=== PATIENT | female | born 1980 | race African-American/Black ===

== ENCOUNTER 2018-03-13 12:00 | Inpatient (IN) | payer OTHER ==
[2018-03-18 15:01] VITALS: BMI 22.3
[2018-03-19] MEDS ORDERED: Gabapentin 300 MG CAP ONE (08:49)
[2018-03-19] MEDS ORDERED: CEFAZOLIN 2 GM/50 ML BAG ONE (08:49)
[2018-03-19] MEDS ORDERED: Famotidine/PF 20 mg/2ml Vial ONE (08:49)
[2018-03-19] MEDS ORDERED: CeleCOXIB 100 MG CAP ONE (08:49)
[2018-03-19] MEDS ORDERED: Midazolam HCl 2 mg/2 ml Vial ONE (09:36)
--- NOTE | 2018-03-19 09:39 | HP ---
HISTORY OF PRESENT ILLNESS: Beverly Rutherford is a 48-year-old female, who had a left arm fistula placed on 01/14/2018. Ultrasound vein mapping suggested cephalic vein to be acceptable and findings of operation were that of cephalic vein is seemed to accept the dilator well and she reports she had a good bruit in the fistula upon discharge home, but sometime after as an outpatient, this signal was lost. She now desires peritoneal dialysis catheter placement. Ultrasound vein mapping of the right arm reveals the cephalic vein to be 2 mm, 1 mm, 1 mm, 1 mm antecubital fossa and proximal forearm 2 mm, basilic vein 5, 4, 4 , and 2 mm antecubital fossa. Plan is to explore her right arm for primary fistula and place the laparoscopic peritoneal dialysis catheter. We will not plan to place the prosthetic graft. She understands the risks and benefits of procedure and consents. She now dialyzes Sunday, Sunday, Sunday at [facility] at 3:00 p.m. ALLERGIES: NONE. SOCIAL HISTORY: Tobacco, none. Alcohol, none. PAST SURGICAL HISTORY: Tubal ligation on 01/14/2018, left arm primary fistula at the proximal radial artery and outflow slowly, cephalic vein upper arm now thrombosed. PAST MEDICAL HISTORY: Diabetes mellitus, hypertension, and end-stage renal disease, on maintenance dialysis. REVIEW OF SYSTEMS: Noncontributory. IMAGING STUDIES: Echocardiogram normal. MEDICATIONS: 1. Levetiracetam 250 mg once a day. 2. Plavix 75 mg a day. 3. Aspirin 81 mg a day. 4. Atorvastatin 80 mg a day. 5. Levemir insulin 9 units a.m. and 9 units at bedtime. 6. Amlodipine 5 mg a day. 7. Carvedilol 25 mg twice a day. PHYSICAL EXAMINATION: VITAL SIGNS: Weight 116 pounds, height 5 feet 1 inch, blood pressure 140/69, pulse 74, temperature 99.3 degrees. HEAD, EARS, EYES, NOSE, AND THROAT: Unremarkable. LUNGS: Clear to auscultation. CARDIAC: Regular rhythm without murmur or gallop. ABDOMEN: Soft, nontender. No hernias noted. Flat abdomen. EXTREMITIES: Unremarkable. Left arm fistula thrombosed. ASSESSMENT AND PLAN: 1. End-stage renal disease, on maintenance dialysis at 3:00 p.m. at [facility] on Sunday, Sunday, and Sunday. The plan is laparoscopic peritoneal dialysis catheter and exploration of right arm for a possible fistula. Prosthetic graft will not be placed. Risks of infection, bleeding, re-operation, malfunction of the peritoneal dialysis catheter were explained. 2. Diabetes mellitus, insulin dependent. 3. Hypertension. Job ID: [id number]
--- NOTE | 2018-03-19 10:55 | HP ---
She is scheduled for surgery on 03/19/2018. HISTORY OF PRESENT ILLNESS: Ms. Lamar is a 37-year-old female, G5, P5, with 4 vaginal deliveries and 1 section and also tubal ligation, who has been having increasingly heavy menorrhagia issues. She is noted to be anemic consistent with iron deficiency anemia with a hemoglobin in the 9 to 10 range. She has been receiving IV iron therapy with Dr. Jennifer Moses preoperatively. She describes soaking a maxi pad and tampon in less than an hour for 5 days with her menstrual cycles and has been taking oral iron. Her menstrual cycles essentially caused her to be very fatigued and wipe her out and make her unable to perform her activities of daily living. She also has severe menstrual cramping. Due to this, she underwent an evaluation in my office on February 06. She had a pelvic ultrasound due to the menorrhagia history. This showed her uterus to measure fibroid that was both intramural and also submucosal. Both left and right ovaries were normal in appearance. PAST MEDICAL HISTORY: Negative other than the iron deficiency anemia. PAST SURGICAL HISTORY: section and tubal ligation. She had a section approximately 2 years ago for twin gestation. Otherwise, 4 normal vaginal deliveries. Her last Pap smear was normal with negative HPV in the past 3 years. FAMILY HISTORY: Only significant for hyperlipidemia and heart disease in her grandparents along with diabetes. SOCIAL HISTORY: Nonsmoker and nondrinker. CURRENT MEDICATIONS: Iron. ALLERGIES: SHE HAS NO KNOWN DRUG ALLERGIES. PHYSICAL EXAMINATION: VITAL SIGNS: Height 5 feet and 5 inches, weight 137 pounds, BMI of 22.8. Blood pressure 110/70, pulse 80, and respirations 18. HEENT: Within normal limits. CHEST: Clear to auscultation. HEART: Regular rate and rhythm. S1 and S2 heart sounds. No murmurs, rubs, or gallops. ABDOMEN: Soft, nontender, and nondistended with no palpable masses. Well-healed Pfannenstiel abdominal incision scar. PELVIC: Vulva and vagina had no lesions. Cervix had no lesions. Uterus is enlarged, 10-week size consistent with uterine fibroids. Adnexa, nontender with no masses. ASSESSMENT: This is a 37-year-old female, G5, P5, with prior and tubal ligation with menorrhagia secondary to uterine fibroid. Desiring definitive surgical therapy. PLAN: Plan is to proceed with total laparoscopic hysterectomy and bilateral salpingectomy. Risks and benefits of procedure had been discussed in detail. She is set for surgery on 03/19. Job ID: [id number]
[2018-03-19] MEDS ORDERED: Fentanyl 250 MCG/5 ML VIAL ONE (11:07)
[2018-03-19] MEDS ORDERED: Glycopyrrolate 0.2 MG/ML 5 ML SYRINGE ONE (12:49)
[2018-03-19] MEDS ORDERED: PROPOFOL 200 MG/20 ML VIAL ONE (12:49)
[2018-03-19] MEDS ORDERED: Dexamethasone 20 MG/5 ML VIAL ONE (12:49)
[2018-03-19] MEDS ORDERED: Ondansetron PF 4 MG/2 ML Vial ONE (12:49)
[2018-03-19] MEDS ORDERED: Lidocaine 1% PF 5 ML VIAL ONE (12:49)
[2018-03-19] MEDS ORDERED: traMADol HCl 50 MG TAB PO PRN ×2 (13:30)
[2018-03-19] MEDS ORDERED: Morphine 2 MG/ML SYRINGE SLOW IVP PRN (13:30)
[2018-03-19] MEDS ORDERED: Zolpidem Tartrate 5 MG TAB PO PRN (13:30)
[2018-03-19] MEDS ORDERED: Ondansetron PF 4 MG/2 ML Vial IVP PRN (13:30)
[2018-03-19] MEDS ORDERED: diphenhydrAMINE 25 MG CAP PO PRN (13:30)
[2018-03-19] MEDS ORDERED: Bisacodyl 10 MG SUPP PR PRN (13:30)
[2018-03-19] MEDS ORDERED: Promethazine HCl 25 MG/ML VIAL IM PRN ×2 (13:30→13:42)
[2018-03-19] MEDS ORDERED: Simethicone Chewable 80 MG TAB PO PRN (13:30)
[2018-03-19] MEDS ORDERED: Ondansetron HCl/PF 4 MG/2 ML Vial IVP PRN (13:42)
[2018-03-19] MEDS ORDERED: Promethazine HCl 25 MG/ML VIAL SLOW IVP PRN (13:42)
[2018-03-19] MEDS ORDERED: Ketorolac Tromethamine 30 MG/ML VIAL IVP PRN (13:42)
[2018-03-19] MEDS ORDERED: Ketorolac Tromethamine 30 MG/ML VIAL ONE (13:43)
[2018-03-19] MEDS ORDERED: Fentanyl 100 MCG/2 ML VIAL ONE ×3 (13:43→14:50)
[2018-03-19] MEDS ORDERED: Bupivacaine HCl 0.5%/Epinephrine 1:200,000/PF 30 ml Vial ONE (13:50)
[2018-03-19] MEDS ORDERED: Promethazine HCl 25 MG/ML VIAL ONE (14:52)
[2018-03-19] MEDS: Ketorolac Tromethamine 30 MG/ML VIAL IVP SCH ×2 (19:08→23:52)
[2018-03-19] MEDS: Lactated Ringer's 1,000 ML IV SCH ×2 (19:09→23:04)
[2018-03-19] MEDS: Acetaminophen 1,000 MG in Premix Bag 1 BAG IVPB SCH ×2 (20:20→23:51)
--- NOTE | 2018-03-20 00:22 | OP ---
DATE OF PROCEDURE: 03/19/2018 PREOPERATIVE DIAGNOSES: 1. 37-year-old female with symptomatic 10 to 12 week uterine fibroids. 2. Menorrhagia. 3. Chronic iron-deficiency anemia secondary to menorrhagia. 4. Prior section and tubal ligation. PROCEDURES PERFORMED: Robotic total laparoscopic hysterectomy with bilateral salpingectomy of remnant tubes. SANIPRACTIC PHYSICIAN SURGEON: Joe Bean DO ANESTHESIA: General endotracheal. ESTIMATED BLOOD LOSS: 50 mL. COMPLICATIONS: None. COUNTS: Correct x2. FINDINGS: 1. Normal-appearing bilateral ovaries and status post tubal segments. 2. Bulky enlarged uterus, approximately 10 to 12 week size. 3. Clear urine present in Ken catheter postprocedure and also intermittent checks during the surgery of distention of the bladder, which was noted to be watertight to fluid distention. 4. Bilateral ureteral peristalsis was seen postprocedure. DISPOSITION: Recovery room, stable. DESCRIPTION OF PROCEDURE: The patient previously received informed consent in regard to surgery. She was taken back to the operating room, where she received the general endotracheal anesthetic agent without complications. She was placed in the dorsal lithotomy position with the use of Luke stirrups and prepped and draped in usual sterile fashion. At this time, a Ken catheter was placed. A sidearm speculum was placed in the vagina. The anterior lip of the cervix was grasped with a single-tooth tenaculum. The uterus was sounded to 11 cm. A size 10 cm THA uterine manipulator was placed with a 4.0 cm cervical cut. Attention was then turned to the abdomen, where respective trocar sites were infiltrated with 0.5% Marcaine with epinephrine. A 12-mm supraumbilical incision was made. Veress needle was entered into the peritoneal cavity. The patient's pressure was noted to be less than 5 mm. The abdomen was insufflated to patient's pressure of 15 with approximately 4.5 L of carbon dioxide gas. Veress needle was then removed. A size 12 mm trocar was then placed and then the laparoscope was introduced through the trocar sleeve confirming proper entry. Additional bilateral lower quadrant 8 mm trocars were placed under laparoscopic guidance along with the right upper quadrant 11 mm pizza hut assistant port. The patient was placed in Trendelenburg position and the robot was then docked. I then scrubbed and proceeded to carry out the surgery from the operative console while my assistants remained at the bedside. The uterus was elevated with the previously mentioned findings. The right fallopian tube remnant was grasped by my pizza hut assistant and cauterized under the mesosalpinx of the right fallopian tube fimbria. This was excised and brought out through the right upper quadrant pizza hut assistant port. The right utero-ovarian ligament was then coagulated and transected and then serial coagulation and transection of the broad ligament hugging close to uterine specimen was carried down until the right round ligament was reached. It was coagulated and transected. The anterior leaf of the broad ligament was entered and the vesicouterine peritoneum was again dissected in layering technique. There was a dense adhesion in the midportion of the lower uterine segment more to the left side that was anchored to the anterior abdominal wall and this was taken down with the monopolar scissors as we confirmed that this was not involving the reflection of the bladder. This allowed for better manipulation of the uterus. The bladder was insufflated and again the exact position of the bladder was confirmed as we began to dissect the vesicouterine peritoneum off the lower uterine segment. The right uterine vessels were skeletonized and coagulated in the internal cervical os region. We came across past the midpoint of the vesicouterine peritoneal flap and there was more denser adhesions on the left side in this region, which then we decided to come at the direction from the left side. First, the left fallopian tube fimbria was excised and removed. Then, the left utero-ovarian ligament was coagulated and transected. Serial coagulation and transection of the uterine broad ligament until left round ligament was reached and it was coagulated and transected. Then, this allowed for us to do a layering technique and dissecting through the dense adhesion in this area with intermittent distention of the bladder to ascertain the exact position avoiding injury to it during this dissection process. In a layering technique with monopolar scissors and control of bleeding with the bipolar fenestrated cautery, we were able to develop a proper plane in the vesicouterine peritoneum and dissected the bladder down past the cervical vaginal angle. There is also skeletonization of the left uterine vessels, left uterine vessels, which were coagulated in the internal cervical os region. After this was completed and the anterior portion of the cervix was easily visible, we redistended the bladder and it was noted to be well past the cervical vaginal angle. The anterior colpotomy was then made over the cervix over the cervical cup from 12 o'clock to 3 o'clock and 12 o'clock to 9 o'clock and this allowed for further cauterization inside the ring of the of the uterine vessels. Then, we completed the posterior colpotomy from 6 o'clock to 9 o'clock and 6 o'clock to 3 o'clock. The specimen was delivered into the vaginal vault. The monopolar scissors were exchanged for a Aric needle local delivery truck driver. A Stratafix suture was brought in by my pizza hut assistant and then I proceeded to close the vaginal cuff after cautery had been performed over some areas of ongoing bleeding. The vaginal cuff was then closed in full-thickness closure from the right angle of the vaginal cuff to the left angle back towards the midline. The suture was trimmed and removed in the right upper quadrant. The pedicle sites again were irrigated and suctioned. Hemostasis was confirmed. Bilateral ureteral peristalsis was visualized. Clear urine was draining from the Ken catheter. The Robot was undocked. Trocar sleeves were removed. Deep stitch in the umbilicus region was made with a [id number]-[id number] suture of 0 Vicryl and the remainder of the trocar sites were closed with 4-0 Monocryl and Dermabond. The vaginal vault was inspected and noted to be hemostatic. The patient was awakened from anesthesia and transferred to recovery room in stable condition. Job ID: [id number]
[2018-03-20] MEDS: Acetaminophen 1,000 MG in Premix Bag 1 BAG IVPB SCH (05:59)
[2018-03-20] MEDS: Ketorolac Tromethamine 30 MG/ML VIAL IVP SCH (05:59)
[2018-03-20] MEDS: Lactated Ringer's 1,000 ML IV SCH (05:59)
[2018-03-20 07:44] LABS: Hemoglobin 11.1 g/dL (12.0-16.0); Mean Corpuscular HGB CONC 32.8 g/dL (32.0-36.0); Mean Corpuscular Hemoglobin 24.7 pg (27.0-31.0); Mean Corpuscular Volume 75.3 fL (78.0-98.0); Mean Platelet Volume 8.2 fL (7.4-10.4); Platelet Count 360 thou/uL (130-400); RBC Distribution Width 20.4 % (11.5-14.5); White Blood Cell (WBC) Count 10.7 thou/uL (4.8-10.8)
[2018-03-20] MEDS ORDERED: Ferrous Sulfate 325 MG TAB PO SCH (08:00)
[2018-03-20 08:24] VITALS: BP 126/73; TEMP 98
--- NOTE | 2018-03-20 15:06 | DIS ---
DATE OF ADMISSION: 03/19/2018 DATE OF DISCHARGE: 03/20/2018 DIAGNOSES: 1. Symptomatic uterine fibroid. 2. Menorrhagia. 3. Dysmenorrhea. 4. History of chronic anemia. PROCEDURES PERFORMED: Robotic total laparoscopic hysterectomy and bilateral salpingectomy. SUMMARY HOSPITAL COURSE: Ms. Lamar is a 37-year-old female, G5, P5, with prior section x1 and tubal ligation and had continued issues with menorrhagia. She was noted to have a submucosal intramural uterine fibroid and possible adenomyosis on ultrasound findings and decided to proceed with definitive surgical therapy. She underwent an uncomplicated robotic total laparoscopic hysterectomy with bilateral salpingectomy on 03/19/2018. Postoperatively, she has done well. Vital signs have remained stable. She has had good pain control and has been ambulating and voiding without difficulty. She is passing flatus and has no concerns this morning. Her vital signs are stable with a temp of 98.6, pulse 76, respirations 16, and blood pressure 126/68. Her postoperative hematocrit is appropriate at 33.9%. She will be discharged home this morning and has tramadol 50 mg q.6 hours p.r.n. pain. She should use [id number] ibuprofen as directed and has a followup in 2 and 6 weeks. Her pathology is pending at time of discharge. Job ID: [id number]
[2018-03-24] MEDS ORDERED: Ibuprofen 800 MG TAB PO SCH (21:00)
== END 2018-03-20 11:40 | disposition home or self-care (01) | DRG 743 ==
LOC: SURG A 03-19 08:09 → EEVIPCON 03-19 12:30 → 3SE 03-19 15:29
PROVIDERS: ADMIT Obstetrics & Gynecology; ATTEND Obstetrics & Gynecology
PROC: 0UT94ZZ Resection of Uterus, Percutaneous Endoscopic Approach (ICD-10-PCS; principal; 2018-03-19)
PROC: 0UT74ZZ Resection of Bilateral Fallopian Tubes, Percutaneous Endoscopic Approach (ICD-10-PCS; 2018-03-19)
PROC: 8E0W4CZ Robotic Assisted Procedure of Trunk Region, Percutaneous Endoscopic Approach (ICD-10-PCS; 2018-03-19)
DX: D25.1 Intramural leiomyoma of uterus (principal); D25.0 Submucous leiomyoma of uterus; D50.0 Iron deficiency anemia secondary to blood loss (chronic); N92.0 Excessive and frequent menstruation with regular cycle
CPT/HCPCS: 36415; 85027; 86850; 86870; 86900; 86901; 86922; 88307; J0131; J0670; J1100; J1885; J2001; J2250; J2405; J2550; J2704; J3010; S0028

== ENCOUNTER 2018-03-18 14:30 | Outpatient (CLI) | payer OTHER ==
[2018-03-18 16:28] LABS: Hemoglobin 11.4 g/dL (12.0-16.0); Mean Corpuscular HGB CONC 31.7 g/dL (32.0-36.0); Mean Corpuscular Hemoglobin 23.7 pg (27.0-31.0); Mean Platelet Volume 8.1 fL (7.4-10.4); Platelet Count 349 thou/uL (130-400); RBC Distribution Width 20.5 % (11.5-14.5); White Blood Cell (WBC) Count 4.9 thou/uL (4.8-10.8)
== END 2018-03-18 14:31 | disposition home or self-care (01) ==
LOC: LABBT 14:30
PROVIDERS: ATTEND Obstetrics & Gynecology
DX: Z01.812 Encounter for preprocedural laboratory examination (principal); N92.0 Excessive and frequent menstruation with regular cycle; D25.9 Leiomyoma of uterus, unspecified; D64.9 Anemia, unspecified
CPT/HCPCS: 85027; 86850; 86870; 86900; 86901; 86922